=== PATIENT | male | born 1960 | race Caucasian/White ===

== ENCOUNTER 2018-06-15 15:18 | Emergency (ER) | payer SELFPAY ==
[~2018-06-15] VITALS: Ht 188 cm; Wt 84.1 kg
--- NOTE | 2018-06-15 15:26 | NUR ---
EKG done in triage
--- NOTE | 2018-06-15 16:18 | NUR ---
Pt presents for syncopal event this AM, hitting face. Pt denies head, neck, back pain. Pt NAD at this time.
[2018-06-15 16:19] LABS: BASOPHILS # (AUTO) 0.02 x10^3/uL (0-0.1); BASOPHILS % (AUTO) 0 % (0-1); EOSINOPHILS # (AUTO) 0.04 x10^3/uL (0-0.4); EOSINOPHILS % (AUTO) 1 % (1-7); LYMPHOCYTES % (AUTO) 30 % (22-44); MD NO; MEAN CORPUSCULAR HEMOGLOBIN 34.4 pg (27.5-34.5); MEAN CORPUSCULAR HGB CONC 34.1 g/dL (33.2-36.2); MEAN CORPUSCULAR VOLUME 101.1 fL (81-97); MEAN PLATELET VOLUME 7.1 fL (7.4-10.4); MONOCYTES # (AUTO) 0.76 x10^3/uL (0.2-0.8); MONOCYTES % (AUTO) 13 % (2-9); NEUTROPHILS # (AUTO) 3.43 x10^3/uL (1.8-6.8); NEUTROPHILS % (AUTO) 57 % (42-75); PLATELET COUNT 202 x10^3/uL (130-400); RED BLOOD COUNT 4.42 x10^6/uL (4.38-5.82); RED CELL DISTRIBUTION WIDTH 14.9 % (9.4-14.8)
[2018-06-15 16:27] LABS: ALBUMIN 3.9 g/dL (3.4-5.0); ANION GAP 10 mmol/L (5-15); CALCIUM 8.4 mg/dL (8.5-10.1); CHLORIDE 106 mmol/L (98-107); INTERNATIONAL NORMALIZED RATIO 1.04 (0.93-1.1)
[2018-06-15 16:29] LABS: ALANINE AMINOTRANSFERASE 148 U/L (12-78); ALKALINE PHOSPHATASE 55 U/L (45-117); BILIRUBIN,TOTAL 1.1 mg/dL (0.2-1.0); CREATININE 0.89 mg/dL (0.7-1.3); TOTAL PROTEIN 7.5 g/dL (6.4-8.2)
--- NOTE | 2018-06-15 16:40 | NUR ---
Break RN: pt resting in side lying position in [facility]. VSS. Denies needs at this time. Chart posted for MD recheck.
[2018-06-15] MEDS ORDERED: BACITRACIN ZINC OINT 500U/GM, 0.9 GM ONE (17:02)
--- NOTE | 2018-06-15 17:10 | NUR ---
FIRST CONTACT WITH PT: Patient/Caregiver given discharge instructions and they have confirmed that they understand the instructions. Patient ambulatory with steady gait. PT LEFT WITH ALL PERSONAL BELONGINGS
[2018-06-15 17:11] VITALS: BP 125/86
== END 2018-06-15 17:13 | disposition home or self-care (01) ==
LOC: ED 17:09
DX: S70.12XA Contusion of left thigh, initial encounter (principal); S00.31XA Abrasion of nose, initial encounter; S09.90XA Unspecified injury of head, initial encounter; I48.91 Unspecified atrial fibrillation; W18.30XA Fall on same level, unspecified, initial encounter; Y93.89 Activity, other specified; Y92.89 Other specified places as the place of occurrence of the external cause; Y99.8 Other external cause status
CPT/HCPCS: 36415; 80053; 85025; 85610; 85730; 93005; 99284

== ENCOUNTER 2018-07-03 17:35 | Emergency (ER) | payer OTHER ==
[~2018-07-03] VITALS: Ht 188 cm; Wt 88.0 kg
[2018-07-03 17:38] VITALS: BP 133/91
[2018-07-03] MEDS ORDERED: LIDOCAINE-MPF 1%, 5ML ONE (17:54)
--- NOTE | 2018-07-03 18:15 | NUR ---
PT BIB [facility] FOR LEFT LACERATION OF HAND. PT WAS USING A [employer]. PT WITH ETOH ODOR. ASSESSMENT COMPLETED.
[2018-07-03] MEDS ORDERED: BACITRACIN ZINC OINT 500U/GM, 0.9 GM ONE ×2 (18:34→18:41)
--- NOTE | 2018-07-03 18:59 | NUR ---
LEFT HAND LACERATION SUTURED AND DRESSING PLACED ON PT
== END 2018-07-03 19:02 | disposition home or self-care (01) ==
LOC: ED 18:41
DX: S61.412A Laceration without foreign body of left hand, initial encounter (principal); W26.0XXA Contact with knife, initial encounter; Y93.89 Activity, other specified; Y92.009 Unspecified place in unspecified non-institutional (private) residence as the place of occurrence of the external cause; Y99.8 Other external cause status
CPT/HCPCS: 12002; 99283

== ENCOUNTER 2018-07-11 10:41 | Emergency (ER) | payer OTHER ==
[~2018-07-11] VITALS: Ht 188 cm; Wt 89.7 kg
[2018-07-11 10:43] VITALS: BP 159/101
== END 2018-07-11 11:11 | disposition home or self-care (01) ==
LOC: ED 11:08
DX: Z48.02 Encounter for removal of sutures (principal); I48.91 Unspecified atrial fibrillation
CPT/HCPCS: 99282